=== PATIENT | female | born 1985 | race Caucasian/White ===

== ENCOUNTER → 2017-07-18 | Outpatient (CLI) | payer BC ==
[2017-07-18 10:27] LABS: CH 26.6; CHCM 32.9; HCT 36.2 % (34.0-46.0); HDW 3.01; HGB 12.3 gm/dL (11.4-16.0); MCH 27.5 pg (25.0-35.0); MCHC 33.9 g/dL (31.0-37.0); MCV 81.2 fL (80.0-100.0); Mean Platelet Volume 7.2; RBC 4.46 m/uL (3.80-5.40); RDW 14.5 % (11.5-15.5); WBC 9.5 k/uL (3.8-10.6)
[2017-07-18 10:46] LABS: Glucose 116 mg/dL (74-99); Non-African American GFR(MDRD) >60 (>60 ml/min/1.73 sqM)
[2017-07-18 11:13] LABS: Hepatitis B Surface Ag Index 0.04
[2017-07-18 13:57] LABS: Hemoglobin A1C 5.1 % (4.2-6.1)
[2017-07-18 15:47] LABS: Treponemal Ab Non-Reactive (Non-Reactive)
[2017-07-19 04:57] LABS: Toxoplasma Antibody (IgG) <3.0 IU/mL (<7.2)
[2017-07-19 11:33] LABS: Alpha Fetoprotein 32.3 ng/mL; Alpha Fetoprotein (M.O.M) 0.84; B-HCG (M.O.M.) 1.54; Gestational Age (days) 1; Human Chorionic Gonadotropin 21.8 IU/mL; Inhibin A (M.O.M.) 1.23; Interpretation SeeBelow; Maternal Age at EDD (Yrs) 33; Smoker No; Unconjugated Estriol (M.O.M.) 0.83
== END | disposition home or self-care (01) ==
LOC: LABWHC1 09:44
PROVIDERS: ATTEND Obstetrics & Gynecology
DX: O26.819 Pregnancy related exhaustion and fatigue, unspecified trimester (principal); Z3A.00 Weeks of gestation of pregnancy not specified
CPT/HCPCS: 36415; 82105; 82565; 82677; 82947; 83036; 84702; 85027; 86336; 86762; 86777; 86778; 86780; 86850; 86900; 86901; 87340; 87390

== ENCOUNTER 2017-12-03 22:10 | Inpatient (IN) | payer BC, OTHER ==
[2017-12-03] MEDS ORDERED: LIDOCAINE 1% (PF) 10 MG/ML (30 ML SDV) SQ PRN (23:00)
[2017-12-03] MEDS ORDERED: METHYLERGONOVINE 0.2 MG/ML 1 ML AMP IM PRN (23:00)
[2017-12-03] MEDS ORDERED: CARBOPROST TROMETHAMINE 250 MCG/ML 1 ML AMP IM PRN (23:00)
[2017-12-03] MEDS ORDERED: OXYTOCIN 10 UNIT/ML 1 ML VIAL IM PRN (23:00)
[2017-12-03] MEDS ORDERED: LACTATED RINGERS 1,000 ML IV SCH (23:00)
[2017-12-03] MEDS ORDERED: TERBUTALINE 1 MG/ML VIAL SQ PRN (23:00)
[2017-12-03] MEDS ORDERED: AMPICILLIN 2,000 MG in SODIUM CHLORIDE 0.9% 100 ML IVPB STA (23:04)
[2017-12-03 23:34] LABS: Basophils % (A) 0 %; Eosinophils # (A) 0.1 k/uL (0-0.7); Eosinophils % (A) 1 %; HCT 39.2 % (34.0-46.0); HGB 12.6 gm/dL (11.4-16.0); Lymphocytes # (A) 1.7 k/uL (1.0-4.8); Lymphocytes % (A) 13 %; MCH 26.2 pg (25.0-35.0); MCHC 32.2 g/dL (31.0-37.0); MCV 81.2 fL (80.0-100.0); Mean Platelet Volume 7.6; Monocytes # (A) 0.5 k/uL (0-1.0); Monocytes % (A) 4 %; Neutrophils % (A) 81 %; Platelet Count 392 k/uL (150-450); RBC 4.82 m/uL (3.80-5.40); WBC 12.4 k/uL (3.8-10.6)
[2017-12-03] MEDS ORDERED: SODIUM CHLORIDE 0.9% 100 ML BAG ONE (23:59)
[2017-12-03] MEDS ORDERED: BUPIVACAINE (PF) 0.25% 30 ML VIAL ONE (23:59)
[2017-12-03] MEDS ORDERED: fentaNYL (PF) 50 MCG/ML 5 ML AMP ONE (23:59)
[2017-12-04 01:04] VITALS: BMI 42.2
[2017-12-04] MEDS: AMPICILLIN 1,000 MG in SODIUM CHLORIDE 0.9% 50 ML IVPB SCH ×2 (03:49→07:46)
[2017-12-04] MEDS: LACTATED RINGERS 1,000 ML IV SCH ×2 (03:55→10:21)
[2017-12-04] MEDS ORDERED: ONDANSETRON 4 MG/2 ML VIAL IVP PRN (09:29)
[2017-12-04] MEDS ORDERED: KETOROLAC 30 MG/ML 1 ML VIAL IVP PRN (09:29)
[2017-12-04] MEDS ORDERED: Acetaminophen-Codeine 300-30mg TAB PO PRN ×2 (09:29)
[2017-12-04] MEDS ORDERED: SIMETHICONE 80 MG CHEWABLE PO PRN ×2 (09:29→10:05)
[2017-12-04] MEDS ORDERED: diphenhydrAMINE 50 MG/ML 1 ML VIAL IVP PRN ×3 (09:29→10:05)
[2017-12-04] MEDS ORDERED: HYDROmorphone PCA 5 MG/25 ML SYRINGE IV PRN (09:31)
[2017-12-04] MEDS ORDERED: NALOXONE 0.4 MG/ML 1 ML VIAL IV PRN (09:31)
--- NOTE | 2017-12-04 09:36 | P.OP ---
Date of Procedure: 12/04/17 Preoperative Diagnosis: Pelvic pain Postoperative Diagnosis: Same with adhesions Procedure(s) Performed: Total abdominal hysterectomy with lysis of adhesions on the bladder Anesthesia: SHERRY Surgeon: Franki Rucker [employer] Instrument [employer] Tool Maker #1: Pati Ron Estimated Blood Loss (ml): 100 IV fluids (ml): 900 Urine output (ml): 200 Pathology: other (Uterus and cervix with dilated fallopian tube) Condition: stable Disposition: floor Operative Findings: Bladder was firmly attached to the anterior uterine wall due to prior surgeries careful dissection of this area was required ovaries otherwise appeared normal. Right fallopian tube was dilated and filled with blood Description of Procedure: Patient was taken to the operating suite where a general anesthetic was found be adequate. She was prepped and draped in normal sterile fashion and placed in the dorsal supine position. Initially a Pfannenstiel skin incision was made and this incision was then carried through to underlying layer of the fascia was second knife. Fascia was then nicked in the midline and this opening was extended laterally with Cedillo scissors. Superior and inferior aspect of this incision were then grasped tented up and bluntly and sharply dissected off the rectus muscles. Rectus muscles were then divided the midline and blunt dissection peritoneum was made. This opening was then extended superiorly and inferiorly with good visualization of both bowel bladder. Once this was accomplished self-retaining retractor was inserted with bladder blade and bowels packed out of the operative field. Patient was then placed in steep Trendelenburg position. Right and left adnexa were then identified and grasped with Ginette clamps and uterus was elevated. First the right fallopian tube was excised without difficulty and then Ariel clamps were then used to clamp the round ligament tubal complex. Tissues clamped cut and tied bilaterally. Minutes mom scissors and blunt and sharp dissection the bladder off of the uterus was then done to the get the cervical bladder out of the operative field. It was very careful and cautious dissection to remove the bladder from the uterus where it was firmly attached. Once this was accomplished pain clamps then used to clamp the uterine vasculature bilaterally tissues clamped cut and tied moving inferiorly through the cardinal ligaments and uterosacral ligament tissues clamped cut and tied once down to the cervical cuff tissue was clamped cut and tied and the corners were held. Cedillo scissors then used to excise uterus and was sent to pathology for evaluation. Once this was accomplished 0 Vicryl suture was used to close the vaginal cuff in a running fashion. Pelvis was then irrigated seeing no bleeding in the pelvis and along pedicles instruments were removed and and peritoneum was delineated with hemostats. This layer was then closed with 0 Vicryl suture fascial layer was then closed with 0 Vicryl suture in a layer of sutures placed with 3-0 Vicryl in subcuticular tissues reapproximate the skin and then the skin was closed with ivan. Sponge, lap, needle counts are correct 2. Patient was then taken to the recovery room in stable and satisfactory condition.
[2017-12-04] MEDS ORDERED: ZOLPIDEM 5 MG TAB PO PRN (10:05)
[2017-12-04] MEDS ORDERED: HYDROCORTISONE 2.5% RECTAL CREAM 30 GM TUBE RECTAL PRN (10:05)
[2017-12-04] MEDS ORDERED: LANOLIN CREAM 5 GM TUBE TOPICAL PRN (10:05)
[2017-12-04] MEDS ORDERED: WITCH HAZEL 1 EACH MED..PAD TOPICAL PRN (10:05)
[2017-12-04] MEDS ORDERED: diphenhydrAMINE 25 MG CAP PO PRN (10:05)
[2017-12-04] MEDS ORDERED: BENZOCAINE/MENTHOL SPRAY 1 GM/SPRAY AEROSOL TOPICAL PRN (10:05)
[2017-12-04] MEDS ORDERED: ACETAMINOPHEN TAB 325 MG TAB PO PRN (10:05)
[2017-12-04] MEDS ORDERED: diphenhydrAMINE 50 MG CAP PO PRN (10:05)
--- NOTE | 2017-12-04 10:08 | P.HPOB ---
History of Present Illness H&P Date: 12/04/17 Chief Complaint: Intrauterine at term: Induction of labor Radha is a 32-year-old at 39 weeks gestation arise for induction of labor. However last night she went into labor on her own and currently dilated to 6 cm. Her course otherwise had been unremarkable she did pass her Glucola screening and she was feeling well at this time. She has been measuring large for dates throughout the but has had multiple ultrasounds to assess size and growth. Pertinent labs could A+ blood type Rh antibody was negative, rubella immune, hepatitis B surface antigen/RPR/HIV/quad screen are all normal. On physical exam this is an obese female whose HEENT is unremarkable. Her heart is regular, lungs are clear, extremities are without pain. Osteopathic exams unremarkable. They believe that artificial rupture membranes occurred sometime during the night but no fluid has really been noted. heart tones are in the 140s and are reactive. She is tamiko every 2 minutes and an epidural was placed. Assessment intrauterine at term. Plan expect spontaneous vaginal delivery. Past Medical History Past Medical History: No Reported History History of Any Multi-Drug Resistant Organisms: None Reported Past Surgical History: No Surgical Hx Reported Past Anesthesia/Blood Transfusion Reactions: No Reported Reaction Smoking Status: Never smoker Past Alcohol Use History: None Reported Past Drug Use History: None Reported - Past Family History Father Family Medical History: No Reported History Medications and Allergies Home Medications Medication Instructions Recorded Confirmed Type Pnv No.95/Ferrous Fum/Folic AC 1 each PO DAILY 12/03/17 12/03/17 History [ Multivitamin Tablet] Allergies Allergy/AdvReac Type Severity Reaction Status Date / Time No Known Allergies Allergy Verified 12/03/17 22:18 Exam Osteopathic Statement: *. No significant issues noted on an osteopathic structural exam other than those noted in the History and Physical/Consult. - Vital Signs Vital signs: Vital Signs Temp Pulse Resp BP 12/03/17 22:19 96.8 F L 77 18 137/70 Intake and Output 12/03/17 12/04/17 12/04/17 22:59 06:59 14:59 Intake Total 1350 Output Total 200 Balance 1150 Intake: IV 1350 Ampicillin 1,000 mg In 50 Sodium Chloride 0.9% 50 ml @ 100 mls/hr IVPB Q4HR [facility] Rx#:[id number] Ampicillin 2,000 mg In 100 Sodium Chloride 0.9% 100 ml @ 200 mls/hr IVPB ONCE [facility] Rx#:[id number] Lactated Ringers 1,000 ml 200 @ 125 mls/hr IV .Q8H [facility] Rx#:[id number] Lactated Ringers 1,000 ml 1000 @ 999 mls/hr IV .Q1H1M [facility] Rx#:[id number] Output: Urine 200 Other: Weight 111.584 kg 111.584 kg Results Result Diagrams: 12/03/17 23:26 Abnormal Lab Results - Last 24 Hours (Table) 12/03/17 Range/Units 23:26 WBC 12.4 H (3.8-10.6) k/uL RDW 16.0 H (11.5-15.5) % Neutrophils # 10.0 H (1.3-7.7) k/uL
--- NOTE | 2017-12-04 10:10 | P.PROBDLV ---
Vaginal Delivery Note - . Vaginal Delivery Note: Patient progressed to complete and pushed with spontaneous vaginal delivery of a viable female over a first-degree perineal laceration. Falling deliver the head immediately retraction of the head onto the perineum was noted delineated a shoulder dystocia. Patient was then placed in a very deep Sai position and while using gentle downward traction was unable to deliver the anterior shoulder therefore I did place my hand in the vagina and grasp onto the axilla of the posterior arm. In doing so I was able to rotate the baby in a clockwise motion and clear the anterior shoulder. This process took between 20 and 30 seconds. Once baby shoulder was released the remainder the baby was delivered without difficulty good motion of both arms was noted and spontaneous cry was noted bulb suction of mouth nares was then performed baby was placed on mother's abdomen where the umbilical cord was clamped cut usual fashion an nursery personnel was present to assume care. At that point it was noted that likely there was meconium staining. Placenta was then delivered intact and Pitocin was added to the IV. There was a first repair perineal laceration that did not appear to involve any muscles therefore it was closed in interrupted fashion with approximate 4 3-0 Vicryl sutures. Both mother and baby are stable following delivery with scores of 8 and 9 at one and 5 minutes respectively and the weight was 8 lbs. 9 oz.
[2017-12-04] MEDS ORDERED: OXYTOCIN 20 UNITS/1000 ML NS 1,000 ML IV SCH (10:15)
[2017-12-04] MEDS ORDERED: DIPH,PERTUS(ACELL)TETVAC-LF 0.5 ML VIAL IM ONE (10:21)
[2017-12-04] MEDS ORDERED: INFLUENZA VACCINE (6 MOS+) 60 MCG/0.5 ML SYRINGE IM ONE (10:21)
[2017-12-04] MEDS: IBUPROFEN 600 MG TAB PO PRN ×2 (16:05→22:10)
[2017-12-04] MEDS: SENNOSIDES-DOCUSATE SODIUM 1 EACH TAB PO SCH (19:58)
[2017-12-04] MEDS ORDERED: SENNOSIDES-DOCUSATE SODIUM 1 EACH TAB PO SCH (21:00)
[2017-12-05] MEDS: IBUPROFEN 600 MG TAB PO PRN ×2 (08:09→14:22)
--- NOTE | 2017-12-05 08:09 | P.DS ---
Providers Date of admission: 12/03/17 23:06 Expected date of discharge: 12/05/17 Attending physician: Franki Rucker Primary care physician: Stated None Hospital Course: Radha is doing very well day 1. She is involuting, voiding, and she is tolerating her diet. She voices no complaint. Vital signs are stable and afebrile. Heart regular, lungs clear, extremities without pain. Osteopathic exams unremarkable. Her lochia is reported be light and she voiced no other complaints. Discharge instructions were thoroughly reviewed. Assessment day 1. Plan discharged home follow up with me in 6 weeks. Prescription for Motrin was sent her pharmacy. Patient Condition at Discharge: Good Plan - Discharge Summary New Discharge Prescriptions: New Ibuprofen [Motrin] 600 mg PO Q6HR PRN #30 tab PRN Reason: Pain No Action Pnv No.95/Ferrous Fum/Folic AC [ Multivitamin Tablet] 1 each PO DAILY Discharge Medication List Pnv No.95/Ferrous Fum/Folic AC [ Multivitamin Tablet] 1 each PO DAILY [History] Ibuprofen [Motrin] 600 mg PO Q6HR PRN #30 tab 12/05/17 [Rx] Follow up Appointment(s)/Referral(s): Franki Rucker DO [Doctor of Osteopathic Medicine] - 6 Weeks Activity/Diet/Wound Care/Special Instructions: Heavy lifting, limit stairs and driving, and pelvic rest. If any high temperatures, heavy bleeding, or severe pain call my office Discharge Disposition: HOME SELF-CARE
[2017-12-05] MEDS: SENNOSIDES-DOCUSATE SODIUM 1 EACH TAB PO SCH (08:10)
[2017-12-05 08:51] VITALS: BP 139/67; PULSE 78; RESP 16; TEMP 98.1
== END 2017-12-05 14:30 | disposition home or self-care (01) | DRG 775 ==
LOC: FBPOP 22:10 → 4FBP 23:06
PROVIDERS: ADMIT Obstetrics & Gynecology; ATTEND Obstetrics & Gynecology
PROC: 0HQ9XZZ Repair Perineum Skin, External Approach (ICD-10-PCS; principal; 2017-12-03)
PROC: 3E0R3NZ Introduction of Analgesics, Hypnotics, Sedatives into Spinal Canal, Percutaneous Approach (ICD-10-PCS; principal; 2017-12-03)
PROC: 00HU33Z Insertion of Infusion Device into Spinal Canal, Percutaneous Approach (ICD-10-PCS; principal; 2017-12-03)
PROC: 10E0XZZ Delivery of Products of Conception, External Approach (ICD-10-PCS; principal; 2017-12-03)
DX: O66.0 Obstructed labor due to shoulder dystocia (principal); O70.0 First degree perineal laceration during delivery; Z37.0 Single live birth; O77.0 Labor and delivery complicated by meconium in amniotic fluid; Z3A.39 39 weeks gestation of pregnancy; O99.214 Obesity complicating childbirth
CPT/HCPCS: 59025; 85025; 88307; 90686; 90715; 99213

== ENCOUNTER → 2018-02-22 | Outpatient (CLI) | payer BC, OTHER ==
[2018-02-22 15:09] LABS: Basophils % (A) 0 %; Eosinophils # (A) 0.2 k/uL (0-0.7); Eosinophils % (A) 2 %; HCT 39.6 % (34.0-46.0); HGB 12.7 gm/dL (11.4-16.0); Lymphocytes # (A) 2.4 k/uL (1.0-4.8); Lymphocytes % (A) 26 %; MCH 25.8 pg (25.0-35.0); MCHC 32.1 g/dL (31.0-37.0); MCV 80.5 fL (80.0-100.0); Mean Platelet Volume 7.1; Monocytes # (A) 0.5 k/uL (0-1.0); Monocytes % (A) 5 %; Neutrophils # (A) 6.1 k/uL (1.3-7.7); Neutrophils % (A) 65 %; Platelet Count 439 k/uL (150-450); RBC 4.93 m/uL (3.80-5.40); RDW 14.9 % (11.5-15.5); WBC 9.4 k/uL (3.8-10.6)
== END | disposition home or self-care (01) ==
LOC: LABPAT 14:03
PROVIDERS: ATTEND Obstetrics & Gynecology
DX: Z01.812 Encounter for preprocedural laboratory examination (principal)
CPT/HCPCS: 36415; 85025

== ENCOUNTER 2018-03-02 06:01 | Day surgery (SDC) | payer BC, OTHER ==
[2018-02-27 15:15] VITALS: BMI 39.4
--- NOTE | 2018-03-01 16:32 | P.HPOB ---
History of Present Illness H&P Date: 03/01/18 Chief Complaint: Family planning Radha is a 32-year-old female who is completed her family planning and desires permanent sterilization. Risks/benefits/alternatives to a laparoscopic tubal ligation with Filshie clipped was explained to the patient in detail and all questions were answered for her prior to proceeding to the operating room. Past Medical History Past Medical History: No Reported History History of Any Multi-Drug Resistant Organisms: None Reported Past Surgical History: No Surgical Hx Reported Past Anesthesia/Blood Transfusion Reactions: No Reported Reaction Smoking Status: Never smoker - Past Family History Father Family Medical History: No Reported History Medications and Allergies Home Medications Medication Instructions Recorded Confirmed Type Acetaminophen Tab [Tylenol Tab] 650 mg PO Q4H PRN 02/27/18 02/27/18 History Allergies Allergy/AdvReac Type Severity Reaction Status Date / Time No Known Allergies Allergy Verified 02/27/18 14:57 Exam Osteopathic Statement: *. No significant issues noted on an osteopathic structural exam other than those noted in the History and Physical/Consult. - OBG Physical Exam Breast: both: normal (no masses) Abdomen: bowel sounds normal, no diffuse tenderness, no bruit present, no guarding noted, no hepatomegaly, no splenomegaly, no mass Vulva: both: normal Vagina: normal moisture, no discharge Cervix: no lesion, no discharge Uterus: normal size, normal contour Adnexa: both: normal Anus/Rectum: normal perianal skin, no rectal mass, no hemorrhoids, heme negative
[~2018-03-02 06:01] MED LIST: DEXAMETHASONE SOD PHOSPHATE 10 MG/ML 1 ML VIAL IV ONE; LACTATED RINGERS 1,000 ML IV SCH; LIDOCAINE 1% 20 ML VIAL (10MG/ML) FOR IV START INTRADERMA PRN; MIDAZOLAM 2 MG/2 ML VIAL IV PRN; MORPHINE SULFATE 4 MG/ML SYRINGE IV PRN; Pre Op ABX Message 1 EACH MISC MISCELLANE ONE; SCOPOLAMINE 1.5MG/72HR PATCH TRANSDERM ONE; fentaNYL (PF) 50 MCG/ML 2 ML AMP IV PRN
[2018-03-02] MEDS ORDERED: ONDANSETRON 4 MG/2 ML VIAL IVP ONE (06:45)
[2018-03-02] MEDS ORDERED: SUCCINYLCHOLINE CHLORIDE 100 MG/5 ML SYR IV ONE (07:34)
[2018-03-02] MEDS ORDERED: fentaNYL (PF) 50 MCG/ML 2 ML AMP ONE (07:34)
[2018-03-02] MEDS ORDERED: BUPIVACAINE (PF) 0.25% 30 ML VIAL SQ ONE (07:34)
[2018-03-02] MEDS ORDERED: MIDAZOLAM 2 MG/2 ML VIAL ONE (07:34)
[2018-03-02] MEDS ORDERED: PROPOFOL 10 MG/ML 20 ML VIAL IV ONE (07:34)
[2018-03-02] MEDS ORDERED: LIDOCAINE 1% INJ 10MG/ML (20 ML MDV) ONE (07:34)
--- NOTE | 2018-03-02 08:06 | P.OP ---
Date of Procedure: 03/02/18 Preoperative Diagnosis: Family planning Postoperative Diagnosis: Same Procedure(s) Performed: Laparoscopic tubal occlusion with Filshie clips Anesthesia: SHERRY Surgeon: Franki Rucker Estimated Blood Loss (ml): 3 IV fluids (ml): 400 Urine output (ml): 20 Pathology: none sent Condition: stable Disposition: same day Operative Findings: Small fibroid noted subserosally at fundus otherwise normal female anatomy Description of Procedure: Patient was taken to the operating suite where a general anesthetic was found be adequate. She was prepped and draped in the normal sterile fashion and placed in dorsal lithotomy position. Initially a speculum was inserted into the vagina and the anterior lip of the cervix identified and grasped with an Allis clamp uterus was then sounded to 10 cm and a uterine manipulator was inserted without difficulty. Other incidents were then removed and red rubber catheter was used to drain the bladder of urine. Once this was, as closer changed and attention was turned to abdominal portion procedure where 3 mL of quarter percent Marcaine was injected periumbilically. Through this injected anesthetic a 5 mm skin incision was made and through this incision under direct visualization. Trocar and sleeve the camera was inserted. Once peritoneal placement was assured gas was allowed to fully insufflate the abdomen and 8 mm skin incision was made 3 cm above the pubic symphysis in the midline. Through this opening under direct visualization a second port and sleeve were inserted. Once this was accomplished uterus was elevated and with the patient in steep Trendelenburg position. An tubes were identified and a clip was first placed in the right tube than the left tube. No bleeding is seen in the mesosalpinx and no other issues are noted. Therefore instruments were removed and gas was allowed to expel from the abdomen. 5 deep breaths were provided during this process. Once completed 4-0 Vicryl was used to close incision subcuticularly and the remaining 7 mL of quarter percent Marcaine was injected around the incisions. Instruments were then removed from the vagina. Patient was then taken to the recovery room in stable and satisfactory condition and will plan for discharged home later today once stable. Plan - Discharge Summary New Discharge Prescriptions: New Ibuprofen [Motrin] 600 mg PO Q6HR PRN #30 tab PRN Reason: Pain No Action Acetaminophen Tab [Tylenol Tab] 650 mg PO Q4H PRN PRN Reason: Pain Discharge Medication List Acetaminophen Tab [Tylenol Tab] 650 mg PO Q4H PRN 02/27/18 [History] Ibuprofen [Motrin] 600 mg PO Q6HR PRN #30 tab 03/02/18 [Rx] Follow up Appointment(s)/Referral(s): Franki Rucker DO [Doctor of Osteopathic Medicine] - 2 Weeks Activity/Diet/Wound Care/Special Instructions: No heavy lifting, limit stairs and driving, and pelvic rest for the next few days. If any high temperatures, heavy bleeding, or severe pain call my office
[2018-03-02 08:29] VITALS: TEMP 97.2
[2018-03-02 09:16] VITALS: RESP 18
[2018-03-02] MEDS ORDERED: IBUPROFEN 200 MG TAB PO ONE (09:36)
[2018-03-02 09:46] VITALS: BP 125/82; PULSE 64
== END 2018-03-02 10:00 | disposition home or self-care (01) ==
LOC: OR 06:01
PROVIDERS: ATTEND Obstetrics & Gynecology
DX: Z30.2 Encounter for sterilization (principal)
CPT/HCPCS: 81025; 58671; J2250; J1100; J2405; J2001; J3010; J0330; J2704